=== PATIENT | male | born 1940 | race Asian ===

== ENCOUNTER 2018-08-06 11:06 | Emergency (ER) | payer OTHER ==
[2018-08-06 12:12] VITALS: BP 104/63
[2018-08-06] MEDS ORDERED: MOTRIN PO ONE (13:51)
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
== END 2018-08-06 14:12 | disposition home or self-care (01) ==
LOC: ED 11:06
DX: S39.012A Strain of muscle, fascia and tendon of lower back, initial encounter (principal); I11.0 Hypertensive heart disease with heart failure; Z88.0 Allergy status to penicillin; Z96.643 Presence of artificial hip joint, bilateral; Z87.891 Personal history of nicotine dependence; V89.2XXA Person injured in unspecified motor-vehicle accident, traffic, initial encounter; Y93.89 Activity, other specified; Y92.89 Other specified places as the place of occurrence of the external cause; Y99.8 Other external cause status
CPT/HCPCS: 99282

== ENCOUNTER 2020-06-16 11:09 | Emergency (ER) | payer MEDICARE ==
--- NOTE | 2020-06-16 12:21 | XRay Report ---
CHEST 1 VIEW 06/16/2020 11:54 AM INDICATION / CLINICAL INFORMATION: Shortness of breath. COMPARISON: 07/15/2019 FINDINGS: SUPPORT DEVICES: Cardiac ICD appears appropriately positioned. HEART / MEDIASTINUM: Stable mild cardiomegaly. LUNGS / PLEURA: Small bilateral pleural effusions with mild interstitial edema. No pneumothorax. ADDITIONAL FINDINGS: No significant additional findings. IMPRESSION: 1. Small bilateral pleural effusions with mild interstitial pulmonary edema. Signer Name: Marino Gibbons MD Signed: 06/16/2020 12:16 PM Workstation Name: [id number]
--- NOTE | 2020-06-16 12:31 | Emergency Department Report ---
ED Fall HPI - General Chief Complaint: Fall Stated Complaint: FALL Time Seen by Provider: 06/16/20 11:32 Source: EMS Mode of arrival: Stretcher Limitations: No Limitations - History of Present Illness Initial Comments: 79-year-old male with a past medical history of dementia, hypertension, CAD, atrial fibrillation currently on Eliquis, CHF with a EF of 10 to 15%, AICD, and chronic kidney disease presents to the hospital with complaints of 1 week of sh ortness of breath, abdominal distention, generalized weakness, and frequent falls. Patient ambulates with a cane at his baseline. He states with activity and exertion he is short of breath and has to sit to rest. He also complains of falls due to weakness and difficulty getting up. He denies head injury, LOC, neck pain, chest pain, abdominal pain, or extremity injury during fall. He is noted to have significant abdominal distention which he states has been progressively worsening x1 week. Patient states he had history of previous abdominal distention and denies history of paracentesis. For the most part has been compliant with his medications that include Eliquis and Lasix. As per ne dical record patient does have a history of dementia but he is oriented to person, place, month, and year - Related Data Home Medications Medication Instructions Recorded Confirmed Last Taken Apixaban [Eliquis] 2.5 mg PO BID 07/15/19 06/16/20 06/15/20 Potassium Chloride [K-Dur] 20 meq PO QDAY 07/15/19 06/16/20 06/15/20 Simvastatin 40 mg PO QHS 07/15/19 06/16/20 06/15/20 predniSONE [Deltasone] 60 mg PO QDAY 07/15/19 06/16/20 Unknown Metoprolol Xl [Metoprolol 25 mg PO QDAY 06/16/20 06/16/20 06/15/20 SUCCINATE ER TAB] Torsemide [Demadex] 40 mg PO QDAY 06/16/20 06/16/20 06/15/20 lisinopriL [Zestril TAB] 10 mg PO QDAY 06/16/20 06/16/20 06/15/20 metOLazone [Zaroxolyn] 1.25 mg PO QDAY 06/16/20 06/16/20 06/15/20 Allergies Allergy/AdvReac Type Severity Reaction Status Date / Time Penicillins Allergy Unknown Verified 06/16/20 11:19 shrimp Allergy Rash Verified 06/16/20 11:19 ED Review of Systems ROS: Stated complaint: FALL Other details as noted in HPI Comment: All other systems reviewed and negative ED Past Medical Hx - Past Medical History Previous Medical History?: Yes Hx Hypertension: Yes Hx Heart Attack/AMI: Yes Hx Congestive Heart Failure: Yes Hx Renal Disease: Yes Hx Asthma: Yes Additional medical history: AFIB - Surgical History Past Surgical History?: Yes Hx Internal Defibrillator: Yes Additional Surgical History: bilateral hip replacement, hernia repair - Social History Smoking Status: Never Smoker - Medications Home Medications: Home Medications Medication Instructions Recorded Confirmed Last Taken Type Apixaban [Eliquis] 2.5 mg PO BID 07/15/19 06/16/20 06/15/20 History Potassium Chloride [K-Dur] 20 meq PO QDAY 07/15/19 06/16/20 06/15/20 History Simvastatin 40 mg PO QHS 07/15/19 06/16/20 06/15/20 History predniSONE [Deltasone] 60 mg PO QDAY 07/15/19 06/16/20 Unknown History Metoprolol Xl [Metoprolol 25 mg PO QDAY 06/16/20 06/16/20 06/15/20 History SUCCINATE ER TAB] Torsemide [Demadex] 40 mg PO QDAY 06/16/20 06/16/20 06/15/20 History lisinopriL [Zestril TAB] 10 mg PO QDAY 06/16/20 06/16/20 06/15/20 History metOLazone [Zaroxolyn] 1.25 mg PO QDAY 06/16/20 06/16/20 06/15/20 History ED Physical Exam - General Limitations: No Limitations - Other Other exam information: General: No acute distress Head: Atraumatic Eyes: normal appearance ENT: Moist mucous membranes Neck: Normal appearance, no midline tenderness Chest: Clear to auscultation bilaterally CV: Regular rate and rhythm Abdomen: Soft, normal bowel sounds, nontender, significant abdominal distention suggestive of ascites Back: Normal inspection Extremity: Bilateral lower extremity 2+ edema with dark discoloration/chronic skin change. No warmth or calf tenderness Neuro: Alert O x 3, no facial asymmetry, speech clear, no gross motor sensory deficit Psych: Appropriate behavior Skin: Ecchymosis/petechiae to bilateral upper abdomen/lower chest area ED Course Vital Signs 06/16/20 06/16/20 06/16/20 11:24 11:28 11:30 Temperature 97.6 F Pulse Rate 72 Respiratory 14 Rate Blood Pressure 104/75 104/75 101/69 O2 Sat by Pulse 99 Oximetry 06/16/20 06/16/20 06/16/20 11:45 12:00 12:31 Temperature Pulse Rate 80 67 Respiratory 18 20 16 Rate Blood Pressure 101/69 93/66 93/66 O2 Sat by Pulse 63 L 97 Oximetry 06/16/20 06/16/20 06/16/20 13:15 13:30 13:45 Temperature Pulse Rate 73 72 70 Respiratory 19 21 22 Rate Blood Pressure 114/67 100/58 103/64 O2 Sat by Pulse 97 97 97 Oximetry 06/16/20 06/16/20 06/16/20 14:00 14:15 14:30 Temperature Pulse Rate 75 71 Respiratory 16 14 17 Rate Blood Pressure 98/60 100/58 102/67 O2 Sat by Pulse 93 96 98 Oximetry 06/16/20 06/16/20 06/16/20 14:45 15:00 15:15 Temperature Pulse Rate 73 70 73 Respiratory 20 16 17 Rate Blood Pressure 102/67 93/60 102/67 O2 Sat by Pulse 95 98 97 Oximetry 06/16/20 06/16/20 06/16/20 15:30 15:45 16:00 Temperature Pulse Rate 69 70 71 Respiratory 17 17 20 Rate Blood Pressure 95/65 93/60 100/68 O2 Sat by Pulse 86 97 96 Oximetry 06/16/20 16:15 Temperature Pulse Rate 72 Respiratory 18 Rate Blood Pressure 95/65 O2 Sat by Pulse 98 Oximetry ED Medical Decision Making - Lab Data Result diagrams: 06/16/20 13:33 06/16/20 15:06 Lab Results 06/16/20 06/16/20 06/16/20 Range/Units 13:33 13:33 13:33 WBC 5.8 (4.5-11.0) K/mm3 RBC 3.44 L (3.65-5.03) M/mm3 Hgb 10.3 L (11.8-15.2) gm/dl Hct 33.8 L (35.5-45.6) % MCV 98 H (84-94) fl MCH 30 (28-32) pg MCHC 31 L (32-34) % RDW 21.0 H (13.2-15.2) % Plt Count 140 (140-440) K/mm3 Lymph % (Auto) [employer] [place] % (Auto) [employer] Eos % (Auto) [employer] Baso % (Auto) [employer] Lymph # [employer] [place] # [employer] Eos # [employer] Baso # [employer] Seg Neutrophils % [employer] Seg Neutrophils # [employer] PT 34.3 H (12.2-14.9) Sec. INR 3.30 H (0.87-1.13) APTT 48.6 H (24.2-36.6) Sec. Sodium TNR Potassium TNR Chloride TNR Carbon Dioxide TNR Anion Gap TNR BUN TNR Creatinine TNR Estimated GFR TNR BUN/Creatinine Ratio TNR Glucose TNR Calcium TNR Magnesium Total Bilirubin TNR AST TNR ALT TNR Alkaline Phosphatase TNR Troponin T TNR NT-Pro-B Natriuret Pep TNR Total Protein TNR Albumin TNR Albumin/Globulin Ratio TNR Triglycerides TNR Cholesterol TNR LDL Cholesterol Direct TNR HDL Cholesterol TNR Cholesterol/HDL Ratio TNR 06/16/20 06/16/20 Range/Units 13:33 15:06 WBC (4.5-11.0) K/mm3 RBC (3.65-5.03) M/mm3 Hgb (11.8-15.2) gm/dl Hct (35.5-45.6) % MCV (84-94) fl MCH (28-32) pg MCHC (32-34) % RDW (13.2-15.2) % Plt Count (140-440) K/mm3 Lymph % (Auto) [place] % (Auto) Eos % (Auto) Baso % (Auto) Lymph # [place] # Eos # Baso # Seg Neutrophils % Seg Neutrophils # PT (12.2-14.9) Sec. INR (0.87-1.13) APTT (24.2-36.6) Sec. Sodium 134 L Potassium 3.4 L Chloride 92.4 L Carbon Dioxide 22 Anion Gap 23 BUN 90 H Creatinine 3.3 H Estimated GFR 18 BUN/Creatinine Ratio 27 Glucose 118 H Calcium 8.9 Magnesium TNR 2.50 H Total Bilirubin 2.40 H AST 43 H ALT 24 Alkaline Phosphatase 219 H Troponin T 0.076 H NT-Pro-B Natriuret Pep Total Protein 7.0 Albumin 3.0 L Albumin/Globulin Ratio 0.8 Triglycerides Cholesterol LDL Cholesterol Direct HDL Cholesterol Cholesterol/HDL Ratio - EKG Data -: EKG Interpreted by Me (ventricular paced complexes) Rate: normal (80) - Radiology Data Radiology results: report reviewed CHEST 1 VIEW 06/16/2020 11:54 AM INDICATION / CLINICAL INFORMATION: Shortness of breath. COMPARISON: 07/15/2019 FINDINGS: SUPPORT DEVICES: Cardiac ICD appears appropriately positioned. HEART / MEDIASTINUM: Stable mild cardiomegaly. LUNGS / PLEURA: Small bilateral pleural effusions with mild interstitial edema. No pneumothorax. ADDITIONAL FINDINGS: No significant additional findings. IMPRESSION: 1. Small bilateral pleural effusions with mild interstitial pulmonary edema. CT CERVICAL SPINE WITHOUT CONTRAST INDICATION / CLINICAL INFORMATION: multiple falls. TECHNIQUE: Axial CT images were obtained through the cervical spine. Sagittal and coronal reformatted images were produced. All CT scans at this location are performed using CT dose reduction for ALARA by means of automated exposure control. COMPARISON: None available. FINDINGS: ALIGNMENT: There is leftward curvature of the cervical spine. Minimal spondylolisthesis is observed at the C4-5 and C5-6 levels. VERTEBRAE: No indication of fracture is demonstrated. Widespread cervical spondylosis is noted as described level by level below. DISC SPACES: Mild loss of disc height is noted at the C3-4, C4-5 and C5-6 levels. INDIVIDUAL LEVEL ANALYSIS: C1-2: Posterior arthritic changes a re present at the atlantoaxial junction between the anterior arch of C1 and the odontoid process. No additional abnormality. C2-3: No significant abnormality. C3-4: Loss of disc height is noted. Left worse than right facet arthritic changes are observed. There is moderate left-sided C4 nerve root neuroforaminal stenosis. C4-5: Loss of disc height is noted. Right worse than left facet arthropathy is observed. Moderate right-sided C5 nerve root neuroforaminal stenosis is present. Central spinal canal and left C5 nerve root neuroforamina are adequately maintained. C5-6: Left worse than right facet arthropathy is demonstrated. Minimal spondylolisthesis is observed. Moderate left-sided C6 nerve root neuroforaminal stenosis is present. Central spinal canal and right C6 nerve root neuroforamina are adequately maintained. C6-7: No abnormality. C7- T1: No abnormality. CRANIOCERVICAL JUNCTION:No significant abnormality. SPINAL CANAL: Central spinal canal is adequately maintained throughout. PARASPINAL SOFT TISSUES: Calcified atherosclerotic plaque is present at the carotid bifurcations bilaterally. No additional calcified plaque is observed along the course of the common carotid arteries. ADDITIONAL FINDINGS: None. LUNG APICES: No significant abnormality of visualized lungs. The lung apices are largely excluded. IMPRESSION: 1. No indication of fracture or traumatic subluxation. 2. Widespread cervical spondylosis with multifocal neuroforaminal narrowing as described level by level above. CT HEAD WITHOUT CONTRAST INDICATION / CLINICAL INFORMATION: multiple falls. TECHNIQUE: All CT scans at this location are performed using CT dose reduction for ALARA by means of automated exposure control. COMPARISON: None available. FINDINGS: HEMORRHAGE: No evidence of intracranial hemorrhage or extra-axial fluid collection. EXTRA-AXIAL SPACES: Cortical sulci and sylvian fissures are within normal limits for the patient's age of 79 years. Basilar cisterns have an unremarkable appearance. VENTRICULAR SYSTEM: The third and lateral ventricles are within normal limits for size given the patient's age.. CEREBRAL PARENCHYMA: Periventricular and deep white matter lucency is observed. This is probably secondary to microvascular ischemic change. There is no indication of recent infarction. No areas of encephalomalacia are identified. MIDLINE SHIFT OR HERNIATION: There is no mass effect. CEREBELLUM / BRAINSTEM: Brainstem has an unremarkable appearance. Age related cerebellar atrophy is noted. MIDLINE STRUCTURES:Pituitary gland has an unremarkable appearance. No abnormalities are seen in the pineal region. INTRACRANIAL VESSELS:Calcified atherosclerotic plaque is present along the course of the cavernous segments of both internal carotid arteries. Similar findings are seen at the distal vertebral arteries. ORBITS: Status post bilateral cataract surgery. Orbits have an otherwise unremarkable appearance. SOFT TISSUES of HEAD: No significant abnormality. CALVARIUM: Evaluation of bone windows reveals no abnormalities. PARANASAL SINUSES / MASTOID AIR CELLS: Paranasal sinuses are free from inflammatory mucosal disease. Mastoid air cells are normally pneumatized. IMPRESSION: 1. Mild microvascular ischemic change. 2. Head CT without contrast is within normal limits for the patient's age of [address] abdomen pelvis wo con INDICATION: abd distention. TECHNIQUE: All CT scans at this location are performed using CT dose reduction for ALARA by means of automated exposure control. COMPARISON: 07/15/2019 FINDINGS: Small bilateral pleural effusions, with subsequent atelectasis in the lung bases. Moderate cardiomegaly. Extensive ascites throughout the abdomen and pelvis, significantly increased since last year. Liver is small and may well be cirrhotic. Spleen is normal in size. Pancreas is quite atrophic, with no abnormal mass or appreciable inflammation. Both kidneys are small and contain benign appearing cysts. A bdominal aorta is quite atherosclerotic but normal in size. No significant adenopathy. Pelvis Much of the pelvis is obscured by artifact from bilateral hip prostheses. Considerable ascites occupies much of the pelvis. Urinary bladder is grossly negative. No obvious adenopathy or abnormal mass. No bowel obstruction. No acute skeletal lesions. IMPRESSION: 1. Interval development in the past year of extensive ascites and small bilateral pleural effusions. 2. Moderate cardiomegaly, unchanged. 3. No additional significant abnormalities on this less than optimal exam. - Medical Decision Making Patient has significant abdominal distention secondary to ascites with bilateral pleural effusions elevated BNP and leg edema. Patient denies known history of liver disease. Positive history of cardiomyopathy with poor ejection fraction. Acute on chronic renal sufficiency noted patient also has elevated INR and is currently on anticoagulation for A. fib. Patient will be admitted to the hospital service for further treatment. Hospitalist Dr Hinton evaluated the patient and placed the pt on home hospice care. Critical Care Time: No Critical care attestation.: If time is entered above; I have spent that time in minutes in the direct care of this critically ill patient, excluding procedure time. ED Disposition Clinical Impression: Ascites, Bilateral pleural effusion, [id number] renal failure, Coagulopathy, adjunct faculty for medical terminology current use of anticoagulant therapy, Cardiomyopathy, Acute HFrEF (heart failure with reduced ejection fraction) Disposition: OP ADMIT IP TO THIS HOSP Is pt being admited?: Yes Condition: Stable Time of Disposition: 15:59 (Dr hinton/hosp)
--- NOTE | 2020-06-16 12:50 | Cat Scan Report ---
CT HEAD WITHOUT CONTRAST INDICATION / CLINICAL INFORMATION: multiple falls. TECHNIQUE: All CT scans at this location are performed using CT dose reduction for ALARA by means of automated e xposure control. COMPARISON: None available. FINDINGS: HEMORRHAGE: No evidence of intracranial hemorrhage or extra-axial fluid collection. EXTRA-AXIAL SPACES: Cortical sulci and sylvian fissures are within normal limits for the patient's ag e of 79 years. Basilar cisterns have an unremarkable appearance. VENTRICULAR SYSTEM: The third and lateral ventricles are within normal limits for size given the keiko ent's age.. CEREBRAL PARENCHYMA: Periventricular and deep white matter lucency is observed. This is probably seco ndary to microvascular ischemic change. There is no indication of recent infarction. No areas of ence phalomalacia are identified. MIDLINE SHIFT OR HERNIATION: There is no mass effect. CEREBELLUM / BRAINSTEM: Brainstem has an unremarkable appearance. Age related cerebellar atrophy is n oted. MIDLINE STRUCTURES:Pituitary gland has an unremarkable appearance. No abnormalities are seen in the p ineal region. INTRACRANIAL VESSELS:Calcified atherosclerotic plaque is present along the course of the cavernous se gments of both internal carotid arteries. Similar findings are seen at the distal vertebral arteries. ORBITS: Status post bilateral cataract surgery. Orbits have an otherwise unremarkable appearance. SOFT TISSUES of HEAD: No significant abnormality. CALVARIUM: Evaluation of bone windows reveals no abnormalities. PARANASAL SINUSES / MASTOID AIR CELLS: Paranasal sinuses are free from inflammatory mucosal disease. Mastoid air cells are normally pneumatized. IMPRESSION: 1. Mild microvascular ischemic change. 2. Head CT without contrast is within normal limits for the patient's age of 79 years. Signer Name: Aristides Rojas MD Signed: 06/16/2020 12:46 PM Workstation Name: [id number]
--- NOTE | 2020-06-16 12:57 | Cat Scan Report ---
CT CERVICAL SPINE WITHOUT CONTRAST INDICATION / CLINICAL INFORMATION: multiple falls. TECHNIQUE: Axial CT images were obtained through the cervical spine. Sagittal and coronal reformatted images wer e produced. All CT scans at this location are performed using CT dose reduction for ALARA by means of automated exposure control. COMPARISON: None available. FINDINGS: ALIGNMENT: There is leftward curvature of the cervical spine. Minimal spondylolisthesis is observed a t the C4-5 and C5-6 levels. VERTEBRAE: No indication of fracture is demonstrated. Widespread cervical spondylosis is noted as roxy cribed level by level below. DISC SPACES: Mild loss of disc height is noted at the C3-4, C4-5 and C5-6 levels. INDIVIDUAL LEVEL ANALYSIS: C1-2: Posterior arthritic changes are present at the atlantoaxial junction between the anterior arch of C1 and the odontoid process. No additional abnormality. C2-3: No significant abnormality. C3-4: Loss of disc height is noted. Left worse than right facet arthritic changes are observed. There is moderate left-sided C4 nerve root neuroforaminal stenosis. C4-5: Loss of disc height is noted. Right worse than left facet arthropathy is observed. Moderate rig ht-sided C5 nerve root neuroforaminal stenosis is present. Central spinal canal and left C5 nerve kimmy t neuroforamina are adequately maintained. C5-6: Left worse than right facet arthropathy is demonstrated. Minimal spondylolisthesis is observed. Moderate left-sided C6 nerve root neuroforaminal stenosis is present. Central spinal canal and right C6 nerve root neuroforamina are adequately maintained. C6-7: No abnormality. C7-T1: No abnormality. CRANIOCERVICAL JUNCTION:No significant abnormality. SPINAL CANAL: Central spinal canal is adequately maintained throughout. PARASPINAL SOFT TISSUES: Calcified atherosclerotic plaque is present at the carotid bifurcations bila terally. No additional calcified plaque is observed along the course of the common carotid arteries. ADDITIONAL FINDINGS: None. LUNG APICES: No significant abnormality of visualized lungs. The lung apices are largely excluded. IMPRESSION: 1. No indication of fracture or traumatic subluxation. 2. Widespread cervical spondylosis with multifocal neuroforaminal narrowing as described level by lev el above. Signer Name: Aristides Rojas MD Signed: 06/16/2020 12:53 PM Workstation Name: [id number]
--- NOTE | 2020-06-16 12:58 | Cat Scan Report ---
CT abdomen pelvis wo con INDICATION: abd distention. TECHNIQUE: All CT scans at this location are performed using CT dose reduction for ALARA by means of automated e xposure control. COMPARISON: 07/15/2019 FINDINGS: Small bilateral pleural effusions, with subsequent atelectasis in the lung bases. Moderate cardiomega ly. Extensive ascites throughout the abdomen and pelvis, significantly increased since last year. Liver i s small and may well be cirrhotic. Spleen is normal in size. Pancreas is quite atrophic, with no abno rmal mass or appreciable inflammation. Both kidneys are small and contain benign appearing cysts. Abd ominal aorta is quite atherosclerotic but normal in size. No significant adenopathy. Pelvis Much of the pelvis is obscured by artifact from bilateral hip prostheses. Considerable ascites occupi es much of the pelvis. Urinary bladder is grossly negative. No obvious adenopathy or abnormal mass. N o bowel obstruction. No acute skeletal lesions. IMPRESSION: 1. Interval development in the past year of extensive ascites and small bilateral pleural effusions. 2. Moderate cardiomegaly, unchanged. 3. No additional significant abnormalities on this less than optimal exam. Signer Name: Dickson Guillen MD Signed: 06/16/2020 12:54 PM Workstation Name: [id number]
[2020-06-16 14:29] LABS: Hematocrit 33.8 % (35.5-45.6); Hemoglobin 10.3 gm/dl (11.8-15.2); Mean Corpuscular HGB Conc 31 % (32-34); Mean Corpuscular Volume 98 fl (84-94); Platelet Count 140 K/mm3 (140-440); Red Blood Count 3.44 M/mm3 (3.65-5.03)
[2020-06-16 14:34] LABS: INR 3.3 (0.87-1.13)
[2020-06-16 14:35] LABS: Partial Thromboplastin Time 48.6 Sec. (24.2-36.6)
[2020-06-16 14:56] LABS: Blood Urea Nitrogen TNR mg/dL (9-20)
[2020-06-16 14:57] LABS: Alanine Aminotransferase TNR units/L (7-56); Albumin TNR g/dL (3.9-5); BUN/Creatinine Ratio TNR; Calcium TNR mg/dL (8.4-10.2); Chol/HDL Ratio TNR %; HDL Cholesterol TNR mg/dL (40-59); LDL Cholesterol,Direct TNR mg/dL (50-130)
[2020-06-16 15:50] LABS: Calcium 8.9 mg/dL (8.4-10.2)
[2020-06-16 16:21] VITALS: BP 95/65
--- NOTE | 2020-06-16 16:35 | History and Physical Report ---
History of Present Illness Chief complaint: Weakness and swelling History of present illness: 79 YO Male with Vascular Dementia, Cerebral Atherosclerosis, HTN, CAD, Atrial Fib on therapeutic anticoagulation, End Stage Systolic CHF(EF 10%), Ischemic Cardiomyopathy S/P AICD Placement, CKD, Cirrhosis complicated by Ascites presents to ED for evaluation. Patient states that he has experienced progressive weakness and shortness of breath over the past 1 month with progressively worsening symptoms over the past 1 week. Patient acknowledges shortness of breath, abdominal distention, orthopnea, paroxysmal nocturnal dy spnea, dyspnea on exertion, dyspnea at rest, decreased exercise tolerance, as well as generalized lower extremity edema. Patient has also developed gait instability resulting in multiple falls, as well as increased bedbound status. Patient requires 5/6 assistance with activities of daily living, and has a palliative performance score of 40%. Patient seen and evaluated in the emergency department. Lab and imaging studies reviewed. Patient found to have poor prognosis. Advanced care planning conducted in the emergency department. Patient prognosis discussed. Patient declines further inpatient evaluation and elects to receive home hospice care. Patient medically optimized and subsequen tly discharged home on hospice care. Past History Past Medical History: atrial fib, CAD, heart failure, hypertension Past Surgical History: hernia repair, total hip replacement, Other (AICD placement) Social history: , lives with family. denies: smoking, alcohol abuse, prescription drug abuse Family history: diabetes, hypertension Medications and Allergies Allergies Allergy/AdvReac Type Severity Reaction Status Date / Time Penicillins Allergy Unknown Verified 06/16/20 11:19 shrimp Allergy Rash Verified 06/16/20 11:19 Home Medications Medication Instructions Recorded Confirmed Last Taken Type Apixaban [Eliquis] 2.5 mg PO BID 07/15/19 06/16/20 06/15/20 History Potassium Chloride [K-Dur] 20 meq PO QDAY 07/15/19 06/16/20 06/15/20 History Simvastatin 40 mg PO QHS 07/15/19 06/16/20 06/15/20 History predniSONE [Deltasone] 60 mg PO QDAY 07/15/19 06/16/20 Unknown History Metoprolol Xl [Metoprolol 25 mg PO QDAY 06/16/20 06/16/20 06/15/20 History SUCCINATE ER TAB] Torsemide [Demadex] 40 mg PO QDAY 06/16/20 06/16/20 06/15/20 History lisinopriL [Zestril TAB] 10 mg PO QDAY 06/16/20 06/16/20 06/15/20 History metOLazone [Zaroxolyn] 1.25 mg PO QDAY 06/16/20 06/16/20 06/15/20 History Review of Systems Constitutional: weight gain, weakness, no weight loss, no fever, no chills Ears, nose, mouth and throat: no ear pain, no ear discharge, no tinnitis, no decreased hearing, no nose pain Cardiovascular: orthopnea, edema, shortness of breath, dyspnea on exertion, paroxysmal nocturnal dyspnea, leg edema, decreased exercise tolerance, no chest pain Respiratory: no cough, no cough with sputum, no excessive sputum Gastrointestinal: no abdominal pain, no nausea, no vomiting, no diarrhea Genitourinary Male: no hematuria, no flank pain, no discharge, no urinary frequency, no urinary hesitancy Rectal: no pain, no incontinence, no bleeding Musculoskeletal: no neck stiffness, no shooting arm pain, no low back pain, no shooting leg pain Integumentary: no rash, no pruritis, no sores, no wounds, no boils Neurological: no head injury, no paralysis, no weakness, no numbness, no seizures Psychiatric: no anxiety, no memory loss, no sleep disturbances, no hypersomnia, no change in appetite Endocrine: no cold intolerance, no polydipsia, no polyuria Hematologic/Lymphatic: no easy bruising, no easy bleeding Allergic/Immunologic: no urticaria, no wheezing Exam - Constitutional Vitals: Temp Pulse Resp BP Pulse Ox 97.6 F 72 18 95/65 98 06/16/20 11:28 06/16/20 16:15 06/16/20 16:15 06/16/20 16:15 06/16/20 16:15 General appearance: Present: mild distress - EENT Eyes: Present: PERRL ENT: hearing intact, clear oral mucosa - Neck Neck: Present: supple, normal ROM, masses or JVD - Respiratory Respiratory effort: normal Respiratory: bilateral: diminished - Cardiovascular Heart Sounds: Present: S1 & S2. Absent: rub, click - Extremities Extremities: pulses symmetrical, No edema Peripheral Pulses: within normal limits - Abdominal General gastrointestinal: Present: soft, non-tender, non-distended, normal bowel sounds Male genitourinary: Present: normal - Integumentary Integumentary: Present: clear, warm, dry - Musculoskeletal Musculoskeletal: gait normal, strength equal bilaterally - Psychiatric Psychiatric: appropriate mood/affect, intact judgment & insight, cooperative - Neurologic Neurologic: CNII-XII intact, moves all extremities HEART Score - HEART Score Troponin: Troponin T 0.076 ng/mL (0.00-0.029) H 06/16/20 15:06 Results - Labs CBC & Chem 7: 06/16/20 13:33 06/16/20 15:06 Labs: Abnormal lab results 06/16/20 06/16/20 06/16/20 Range/Units 13:33 13:33 15:06 RBC 3.44 L (3.65-5.03) M/mm3 Hgb 10.3 L (11.8-15.2) gm/dl Hct 33.8 L (35.5-45.6) % MCV 98 H (84-94) fl MCHC 31 L (32-34) % RDW 21.0 H (13.2-15.2) % PT 34.3 H (12.2-14.9) Sec. INR 3.30 H (0.87-1.13) APTT 48.6 H (24.2-36.6) Sec. Sodium 134 L (137-145) mmol/L Potassium 3.4 L (3.6-5.0) mmol/L Chloride 92.4 L (98-107) mmol/L BUN 90 H (9-20) mg/dL Creatinine 3.3 H (0.8-1.5) mg/dL Glucose 118 H (75-100) mg/dL Magnesium 2.50 H (1.7-2.3) mg/dL Total Bilirubin 2.40 H (0.1-1.2) mg/dL AST 43 H (5-40) units/L Alkaline Phosphatase 219 H (35-129) units/L Troponin T 0.076 H (0.00-0.029) ng/mL Albumin 3.0 L (3.9-5) g/dL Assessment and Plan - Patient Problems (1) Congestive heart failure Current Visit: Yes Status: Acute Plan to address problem: End-stage congestive heart failure: Patient has ejection fraction of 10% with symptoms consistent with cardiorenal syndrome. Patient declines further evaluation and treatment. Patient elects to have home hospice care. Patient discharged home under hospice care. (2) Cardiorenal syndrome with renal failure Current Visit: Yes Status: Acute Plan to address problem: Pain control, supportive care. (3) Hypertension Current Visit: Yes Status: Acute Qualifiers: Hypertension type: essential hypertension Qualified Code(s): I10 - Essential (primary) hypertension Plan to address problem: Monitor blood pressure every shift, continue medical management. (4) Cirrhosis Current Visit: Yes Status: Acute Qualifiers: Ascites presence: with ascites Plan to address problem: Supportive care. Paracentesis as per hospice service. (5) Vascular dementia Current Visit: Yes Status: Acute Qualifiers: Dementia behavioral disturbance: without behavioral disturbance Qualified Code(s): F01.50 - Vascular dementia without behavioral disturbance Plan to address problem: Supportive care, fall precautions. (6) Advance care planning Current Visit: Yes Status: Acute Plan to address problem: Disease education conducted, patient prognosis discussed. Patient knowledges understanding and agreement with care plan. Patient elects to have home hospice care. Patient discharged home to hospice care. +30 minutes.
== END 2020-06-16 18:44 | disposition home or self-care (01) ==
LOC: ED 11:09
DX: R18.8 Other ascites (principal); J90 Pleural effusion, not elsewhere classified; N17.9 Acute kidney failure, unspecified; D68.9 Coagulation defect, unspecified; I42.9 Cardiomyopathy, unspecified; I50.20 Unspecified systolic (congestive) heart failure; I11.0 Hypertensive heart disease with heart failure; I50.9 Heart failure, unspecified; I25.2 Old myocardial infarction; J45.909 Unspecified asthma, uncomplicated; Z98.890 Other specified postprocedural states; Z79.899 Other long term (current) drug therapy; Z79.01 Long term (current) use of anticoagulants; Z88.0 Allergy status to penicillin; Z91.013 Allergy to seafood
CPT/HCPCS: 36415; 70450; 71045; 72125; 74176; 80053; 80061; 83735; 84484; 85025; 85610; 85730; 93005